=== PATIENT | female | born 1990 | race Two or more races ===

== ENCOUNTER → 2018-02-08 | Outpatient (CLI) | payer OTHER ==
[2018-02-08 20:28] LABS: ESTRADIOL 615.7 PG/ML
[2018-02-08 20:28] LABS: PROGESTERONE 40.6 NG/ML
== END ==
LOC: M LRY 11:21
DX: E28.9 Ovarian dysfunction, unspecified (principal)
CPT/HCPCS: 84443

== ENCOUNTER → 2018-02-15 | Outpatient (CLI) | payer OTHER ==
[2018-02-15 12:00] LABS: HCG, SERUM QUANTITATIVE < 1.0 MIU/ML
[2018-02-15 12:01] LABS: PROGESTERONE 29.2 NG/ML
[2018-02-15 12:02] LABS: ESTRADIOL 844.8 PG/ML
== END ==
LOC: M LRY 07:26
DX: Z32.00 Encounter for pregnancy test, result unknown (principal)
CPT/HCPCS: 84443

== ENCOUNTER → 2018-04-15 | Outpatient (CLI) | payer OTHER ==
[2018-04-15 11:54] LABS: ESTRADIOL 827.8 PG/ML
== END ==
LOC: M LRY 08:16
DX: E28.9 Ovarian dysfunction, unspecified (principal)

== ENCOUNTER → 2018-04-22 | Outpatient (CLI) | payer OTHER ==
[2018-04-22 11:15] LABS: HCG, SERUM QUANTITATIVE < 1.0 MIU/ML
[2018-04-22 11:20] LABS: PROGESTERONE 41.3 NG/ML
== END ==
LOC: M LRY 09:07
DX: E28.9 Ovarian dysfunction, unspecified (principal)

== ENCOUNTER → 2018-08-09 | Outpatient (CLI) | payer OTHER ==
[2018-08-09 12:07] LABS: ESTRADIOL 60.1 PG/ML
[2018-08-09 12:29] LABS: PROGESTERONE 63.4 NG/ML
== END ==
LOC: M LRY 09:09
DX: E28.9 Ovarian dysfunction, unspecified (principal)
CPT/HCPCS: 84443

== ENCOUNTER → 2018-08-16 | Outpatient (CLI) | payer OTHER ==
[2018-08-16 12:55] LABS: HCG, SERUM QUANTITATIVE < 1.0 MIU/ML
[2018-08-16 13:14] LABS: PROGESTERONE 48.8 NG/ML
== END ==
LOC: M LRY 08:43
DX: E28.9 Ovarian dysfunction, unspecified (principal)
CPT/HCPCS: 84702